=== PATIENT | male | born 2005 | race Caucasian/White ===

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

== ENCOUNTER 2023-06-09 17:03 | Emergency (ER) | payer OTHER, SELFPAY ==
--- NOTE | 2023-06-09 17:05 | ED.EAR ---
HPI - Ear Problem General Chief complaint: Ear Stated complaint: Ears Irritation Time Seen by Provider: 06/09/23 17:29 Source: patient and RN notes reviewed Mode of arrival: ambulatory Limitations: no limitations History of Present Illness HPI Narrative: 18-year-old male presents concern for left ear pain. Reports it feels swollen. Reports there irritated so he tried to clean it out himself. He denies drainage, fever, cold symptoms MD Complaint: ear pain Related Data Home Medications Medication Instructions Recorded Confirmed atomoxetine 80 mg capsule 80 mg PO DAILY 11/06/21 06/09/23 clonidine HCl 0.1 mg 0.1 mg PO DAILY 11/06/21 06/09/23 tablet,extended release,12 hr ergocalciferol (vitamin D2) 1,250 1,250 mcg PO DAILY 11/06/21 06/09/23 mcg (50,000 unit) capsule hydroxyzine pamoate 25 mg capsule 25 mg PO DAILY 11/06/21 06/09/23 ziprasidone HCl 20 mg capsule 20 mg PO DAILY 11/06/21 06/09/23 ziprasidone HCl 60 mg capsule 60 mg PO DAILY 11/06/21 06/09/23 pantoprazole 20 mg tablet,delayed 20 mg PO DAILY 06/09/23 06/09/23 release Allergies Allergy/AdvReac Type Severity Reaction Status Date / Time No Known Allergies Allergy Unknown Verified 06/09/23 17:23 Review of Systems Review of Systems: CONSTITUTIONAL: Denies malaise, chills, sweats, or fever. EYES: Denies visual changes, redness, or discharge. ENT: Denies rhinorrhea, congestion, sinus pain, and sore throat. Reports left ear pain CARDIOVASCULAR: Denies chest pain, palpitations, or edema. RESPIRATORY: Denies cough. Denies dyspnea. GASTROINTESTINAL: Denies abdominal pain, nausea, vomiting, diarrhea SKIN: Denies rash or itching. MUSCULOSKELETAL: Denies myalgia. NEUROLOGIC: Denies headache. All systems reviewed & are unremarkable except as noted in HPI and below PMFSH Comments At time of signature, agree with nursing past medical, surgical, social and family history. There is no relevant family history pertinent to the presenting complaint Exam Narrative: GENERAL: Well-appearing, well-nourished, and in no acute distress. HEAD: Normocephalic EYES: PERRLA, conjunctivae clear ENT: Nares clear. Mucous membranes moist. TM pearly obrien with dull light reflex bilaterally; left tragal tenderness with the MARISELA erythema, edema, drainage. Oropharynx not erythematous without lesions. Tonsils not enlarged and without exudate, no drooling, no hoarseness, no trismus, uvula midline. NECK: Supple. No lymphadenopathy CHEST: Clear to auscultation, breath sounds equal. No wheezing, rhonchi, rales, or stridor. No respiratory distress, speaks in full sentences. HEART: Regular rate and rhythm. No murmur heard. SKIN: Warm, dry, no rash. NEURO: Alert and oriented x3. PSYCH: Normal mood and affect Course Course Emergency Course: Patient is aware of diagnosis, understands and agrees to treatment plan. Anticipatory guidance given. Patient agrees to follow-up as directed and is aware of reasons to seek care at the emergency department. Portions of this record may have been created with voice recognition software Level of Care: Express Care Visit Vital Signs Vital signs: Reviewed. Medical Decision Making MDM Narrative Medical decision making narrative: Differential diagnosis considered: Goldstein virus, strep pharyngitis, allergic rhinitis, upper respiratory tract infection, sinusitis, rhinosinusitis, nasopharyngitis. viral pharyngitis, otitis media, otitis externa, otitis effusion, cerumen impaction, foreign body. Exam findings show no acute concerns or changes; patient is non-toxic appearing and is in no distress. Patient is appropriate for outpatient treatment and follow-up. Critical Care Time Critical Care Time Critical Care Time: No Discharge Plan Discharge Clinical Impression: Otitis externa Patient Disposition: Home, Self-Care Condition: Stable Instructions: How to Use Ear Drops (ED) Additional Instructions: 1) Please follow-up with your primar
[2023-06-09 17:13] VITALS: BP 136/80; PULSE 116; RESP 18; TEMP 36.2; O2SAT 98
== END 2023-06-09 17:40 | disposition home or self-care (01) ==
PROVIDERS: Emergency Provider Nurse Practitioner
DX: H60.92 Unspecified otitis externa, left ear (principal)
CPT/HCPCS: 99213; G0463

== ENCOUNTER 2023-08-01 12:18 | Emergency (ER) | payer OTHER, SELFPAY ==
[2023-08-01 12:33] VITALS: BP 133/75; PULSE 110; RESP 16; TEMP 36.9; O2SAT 100
--- NOTE | 2023-08-01 13:24 | ED.URI ---
HPI - URI/Sore Throat General Chief Complaint: Upper Respiratory Infection Stated Complaint: Sore Throat/Neck Pain Time Seen by Provider: 08/01/23 13:15 Source: patient Mode of arrival: ambulatory Limitations: no limitations History of Present Illness HPI Narrative: 18-year-old male presents with mom with complaint of sore throat, congestion, fatigue, stiff neck for 4 days. Afebrile. All systems reviewed and negative except as noted above. Related Data Home Medications Medication Instructions Recorded Confirmed atomoxetine 80 mg capsule 80 mg PO DAILY 11/06/21 06/09/23 clonidine HCl 0.1 mg 0.1 mg PO DAILY 11/06/21 06/09/23 tablet,extended release,12 hr ergocalciferol (vitamin D2) 1,250 1,250 mcg PO DAILY 11/06/21 06/09/23 mcg (50,000 unit) capsule hydroxyzine pamoate 25 mg capsule 25 mg PO DAILY 11/06/21 06/09/23 ziprasidone HCl 20 mg capsule 20 mg PO DAILY 11/06/21 06/09/23 ziprasidone HCl 60 mg capsule 60 mg PO DAILY 11/06/21 06/09/23 pantoprazole 20 mg tablet,delayed 20 mg PO DAILY 06/09/23 06/09/23 release Allergies Allergy/AdvReac Type Severity Reaction Status Date / Time No Known Allergies Allergy Unknown Verified 06/09/23 17:23 Review of Systems Review of Systems: CONSTITUTIONAL: Denies fever, chills, or sweats. reports fatigue. EYES: Denies visual changes, redness, or discharge. ENT: Reports rhinorrhea, congestion, sore throat. Denies otalgia. CARDIOVASCULAR: Denies chest pain, palpitations, or edema. RESPIRATORY: Denies cough or dyspnea. GASTROINTESTINAL: Denies abdominal pain, nausea, vomiting, or diarrhea. GENITOURINARY: Denies dysuria or hematuria. SKIN: Denies rash or itching. MUSCULOSKELETAL: Denies back pain, joint pain, or myalgia. NEUROLOGIC: Denies headache, numbness, or weakness. PSYCHIATRIC: Denies anxiety or depression. All other systems reviewed are negative, except as documented in HPI. PMFSH Comments At time of signature, agree with nursing past medical, surgical, social and family history. There is no relevant family history pertinent to the presenting complaint. Exam Narrative: GENERAL: This is a well-nourished, well-developed patient, in no apparent distress. HEAD: normocephalic, atraumatic. EYES: PERRL. Sclera clear/white. Vision is grossly intact. EARS: External ears normal, auditory canals clear and without drainage, TMs normal without perforation. Hearing grossly intact. NOSE: External nose normal with Are nasal drainage without redness, no rhinorrhea. THROAT: Mucous membranes moist, mild erythema with postnasal drainage NECK: Neck supple, non-tender without lymphadenopathy, masses or thyromegaly. CARDIOVASCULAR: Regular rate and rhythm without murmurs, gallops, or rubs. RESPIRATORY: Clear to auscultation. Breath sounds equal bilaterally. No wheezes, rales, or rhonchi. SKIN: warm, Dry, intact with no suspicious lesions or rash, good texture and turgor. NEURO: awake, alert, and oriented to person, place and time. There were no obvious focal neurologic abnormalities. EXTREMITIES: No joint tenderness, effusion, or edema noted. Course Course Level of Care: Express Care Visit Vital Signs Vital signs: Vital Signs Temperature 36.9 C 08/01/23 12:33 Pulse Rate 110 H 08/01/23 12:33 Respiratory Rate 16 08/01/23 12:33 Blood Pressure 133/75 08/01/23 12:33 Pulse Oximetry 100 08/01/23 12:33 Oxygen Delivery Room Air 08/01/23 12:33 Temperature 36.9 C 08/01/23 12:33 Pulse Rate 110 H 08/01/23 12:33 Respiratory Rate 16 08/01/23 12:33 Blood Pressure 133/75 08/01/23 12:33 Pulse Oximetry 100 08/01/23 12:33 Oxygen Delivery Room Air 08/01/23 12:33 reviewed MDM - URI/Sore Throat MDM Narrative Medical decision making narrative: positive COVID-19. Patient offered paxlovid but mom did not feel was necessary. Patient well-appearing. Patient is aware of diagnosis, understands and agrees to treatment plan. Anti
== END 2023-08-01 13:25 | disposition home or self-care (01) ==
PROVIDERS: Emergency Provider Nurse Practitioner Family
DX: U07.1 COVID-19 (principal)
CPT/HCPCS: 87081; 87426; 87804; 87880; 99213; C9803; G0463

== ENCOUNTER 2023-08-31 17:49 | Emergency (ER) | payer OTHER, SELFPAY ==
[2023-08-31 17:59] VITALS: BP 147/95; PULSE 118; RESP 16; TEMP 37.2; O2SAT 99
--- NOTE | 2023-08-31 18:15 | ED.URI ---
HPI - URI/Sore Throat General Chief Complaint: Upper Respiratory Infection Stated Complaint: sore throat Time Seen by Provider: 08/31/23 18:15 Source: patient Mode of arrival: ambulatory Limitations: no limitations History of Present Illness HPI Narrative: 18-year-old male presents with complaint of sore throat for 3 days. Afebrile. No other complaints today. All systems reviewed and negative except as noted above. Related Data Home Medications Medication Instructions Recorded Confirmed atomoxetine 80 mg capsule 80 mg PO DAILY 11/06/21 08/31/23 clonidine HCl 0.1 mg 0.1 mg PO DAILY 11/06/21 08/31/23 tablet,extended release,12 hr ergocalciferol (vitamin D2) 1,250 1,250 mcg PO DAILY 11/06/21 08/31/23 mcg (50,000 unit) capsule hydroxyzine pamoate 25 mg capsule 25 mg PO DAILY 11/06/21 08/31/23 ziprasidone HCl 20 mg capsule 20 mg PO DAILY 11/06/21 08/31/23 ziprasidone HCl 60 mg capsule 60 mg PO DAILY 11/06/21 08/31/23 pantoprazole 20 mg tablet,delayed 20 mg PO DAILY 06/09/23 08/31/23 release Allergies Allergy/AdvReac Type Severity Reaction Status Date / Time No Known Allergies Allergy Unknown Verified 06/09/23 17:23 Review of Systems Review of Systems: CONSTITUTIONAL: Denies fever, chills, or sweats. EYES: Denies visual changes, redness, or discharge. ENT: Denies rhinorrhea, congestion . Reports sore throat. Denies CARDIOVASCULAR: Denies chest pain, palpitations, or edema. RESPIRATORY: Denies cough or dyspnea. GASTROINTESTINAL: Denies abdominal pain, nausea, vomiting, or diarrhea. GENITOURINARY: Denies dysuria or hematuria. SKIN: Denies rash or itching. MUSCULOSKELETAL: Denies back pain, joint pain, or myalgia. NEUROLOGIC: Denies headache, numbness, or weakness. PSYCHIATRIC: Denies anxiety or depression. All other systems reviewed are negative, except as documented in HPI. PMFSH Comments At time of signature, agree with nursing past medical, surgical, social and family history. There is no relevant family history pertinent to the presenting complaint. Exam Narrative: GENERAL: This is a well-nourished, well-developed patient, in no apparent distress. HEAD: normocephalic, atraumatic. EYES: PERRL. Sclera clear/white. Vision is grossly intact. EARS: External ears normal, auditory canals clear and without drainage, TMs normal without perforation. Hearing grossly intact. NOSE: External nose normal with no obvious nasal discharge, nares without redness, no rhinorrhea. THROAT: Mucous membranes moist, posterior pharynx erythematous with swelling, tonsils 1+ bilaterally without exudates. NECK: Neck supple, non-tender without lymphadenopathy, masses or thyromegaly. CARDIOVASCULAR: Regular rate and rhythm without murmurs, gallops, or rubs. RESPIRATORY: Clear to auscultation. Breath sounds equal bilaterally. No wheezes, rales, or rhonchi. SKIN: warm, Dry, intact with no suspicious lesions or rash, good texture and turgor. NEURO: awake, alert, and oriented to person, place and time. There were no obvious focal neurologic abnormalities. EXTREMITIES: No joint tenderness, effusion, or edema noted. Course Course Level of Care: Express Care Visit Vital Signs Vital signs: Vital Signs Temperature 37.2 C 08/31/23 17:59 Pulse Rate 118 H 08/31/23 17:59 Respiratory Rate 16 08/31/23 17:59 Blood Pressure 147/95 H 08/31/23 17:59 Pulse Oximetry 99 08/31/23 17:59 Oxygen Delivery Room Air 08/31/23 17:59 Temperature 37.2 C 08/31/23 17:59 Pulse Rate 118 H 08/31/23 17:59 Respiratory Rate 16 08/31/23 17:59 Blood Pressure 147/95 H 08/31/23 17:59 Pulse Oximetry 99 08/31/23 17:59 Oxygen Delivery Room Air 08/31/23 17:59 Reviewed MDM - URI/Sore Throat MDM Narrative Medical decision making narrative: Patient is aware of diagnosis, understands and agrees to treatment plan. Anticipatory guidance given. Patient agrees to follow-up as directed and is aware of reasons to see
== END 2023-08-31 18:30 | disposition home or self-care (01) ==
PROVIDERS: Emergency Provider Nurse Practitioner Family
DX: J02.0 Streptococcal pharyngitis (principal); Z86.16 Personal history of COVID-19
CPT/HCPCS: 87880; 99213; G0463

== ENCOUNTER 2023-12-27 11:20 | Outpatient (CLI) | payer OTHER, SELFPAY ==
--- NOTE | ~2023-12-27 | XR_ITS ---
EXAMINATION: XR scoliosis survey DATE: 12/27/2023 11:55 INDICATION: Low back pain. Bilateral shoulder pain. TECHNIQUE: Anteroposterior and lateral views of the entire spine standing were obtained. COMPARISON: None. FINDINGS: Right femoral head stands 5 mm higher than the left. There are 12 pairs of ribs. There are 5 nonrib-bearing lumbar segments. There is 20 degrees dextroscoliosis scoliosis from T4 to T11 by the Jolly method. There is 11 degrees levoscoliosis from T11 to L5. IMPRESSION: 1. Right femoral head stands 5 mm higher than the left. 2. 20 degrees dextroscoliosis from T4 to T11 and 11 degrees levoscoliosis from T11 to L5. Reviewed, dictated and finalized at location E.
== END 2023-12-27 11:21 | disposition home or self-care (01) ==
LOC: ANHIMG 11:22
PROVIDERS: Visit Provider Physician Assistant
DX: M54.50 Low back pain, unspecified (principal)
CPT/HCPCS: 72082

== ENCOUNTER 2024-12-27 11:32 | Emergency (ER) | payer OTHER, SELFPAY ==
[2024-12-27 11:43] VITALS: BP 104/65; PULSE 111; RESP 16; TEMP 36.7; O2SAT 96
[2024-12-27 12:08] LABS: EDSTREPNEGPOS1 Negative (Negative)
--- NOTE | 2024-12-27 12:36 | ED_ITS ---
HPI - URI/Sore Throat General Chief Complaint: Upper Respiratory Infection Stated Complaint: Sore Throat Time Seen by Provider: 12/27/24 11:35 Source: patient Mode of arrival: ambulatory Limitations: no limitations History of Present Illness HPI Narrative: Patient is a 19-year-old male who presents with 1 week of intermittent sore throat, body aches, congestion and postnasal drip. Denies any cough, fever, chills, nausea, vomiting, diarrhea. Has been taking Zyrtec intermittently. Related Data Home Medications Medication Instructions Recorded Confirmed Last Taken Type atomoxetine 80 mg capsule 80 mg PO DAILY 11/06/21 08/31/23 Unknown History clonidine HCl 0.1 mg 0.1 mg PO DAILY 11/06/21 08/31/23 Unknown History tablet,extended release,12 hr ergocalciferol (vitamin D2) 1,250 1,250 mcg PO DAILY 11/06/21 08/31/23 Unknown History mcg (50,000 unit) capsule hydroxyzine pamoate 25 mg capsule 25 mg PO DAILY 11/06/21 08/31/23 Unknown History ziprasidone HCl 20 mg capsule 20 mg PO DAILY 11/06/21 08/31/23 Unknown History ziprasidone HCl 60 mg capsule 60 mg PO DAILY 11/06/21 08/31/23 Unknown History pantoprazole 20 mg tablet,delayed 20 mg PO DAILY 06/09/23 08/31/23 Unknown History release Allergies Allergy/AdvReac Type Severity Reaction Status Date / Time No Known Allergies Allergy Unknown Verified 12/27/24 11:42 Review of Systems Review of Systems: All systems reviewed & are unremarkable except as noted in HPI and below Constitutional: Constitutional: Denies chills, Denies fatigue, Denies fever(s), Denies headache(s), Denies malaise and Denies weakness Eyes: Eyes: Denies blurry vision, Denies itchy eyes and Denies loss of vision ENT: Denies otalgia, Denies headache(s), Reports nasal congestion, Denies sinus pain and Reports sore throat Cardiovascular: Cardiovascular: Denies chest pain, Denies irregular heart rhythm and Denies dyspnea Respiratory: Respiratory: Denies cough and Denies dyspnea Gastrointestinal: Gastrointestinal: Denies abdominal pain, Denies diarrhea, Denies nausea and Denies vomiting Musculoskeletal: Musculoskeletal: Denies back pain, Reports myalgias and Denies arthralgias Integumentary/Breasts: Skin/Breast: Denies pruritus and Denies rash Neurologic: Denies headache(s), Denies loss of vision and Denies weakness Psychiatric: Psychiatric: Reports no additional psychiatric complaints Endocrine: Endocrine: Denies fatigue Allergic/Immunologic: Allergic/Immunologic: Denies itchy eyes PMFSH Comments At time of signature, agree with nursing past medical, surgical, social and family history. There is no relevant family history pertinent to the presenting complaint. Exam Const: General: cooperative, healthy appearing, comfortable, no acute distress and well nourished Nutritional Appearance: well nourished Orientation/consciousness: patient oriented x3 Limitations: no limitations HENMT: Head: normal to inspection, normocephalic and atraumatic Ears: hearing grossly normal bilaterally, external ears normal, TM's normal bilaterally, EAC's normal and no periauricular adenopathy Face/Nose/Sinus: Normal external nose present, Abnormal mucous membranes and turbinates present erythematous bilateral and diffuse, normal facial exam, sinuses nontender and face symmetric Face and sinus: normal facial exam, sinuses nontender and face symmetric Mouth: Yes Normal oral and palatal mucosa present, Yes lip normal, Yes tongue normal, Yes Normal salivary glands and ducts present, Yes oropharynx normal and Yes moist mucous membranes Teeth and gingiva: dentition normal Throat: posterior oropharynx normal, tonsils normal, uvula midline and postnasal drainage Eyes: General: appearance normal, both eyes and all related structures Al ignment and Position: alignment normal and position normal Periorbital: periorbital findings normal Eyelids: eyelids normal Pupils: Equal, round and reactive pupils present Neck: Neck: normal visual inspection, full ROM, no lymphadenopathy and supple Chest: Chest palpation & inspection: normal inspection of the chest and normal palpation of entire chest wall Resp: Effort & Inspection: normal respiratory effort and able to speak in complete sentences Auscultation: clear to auscultation bilaterally, no crackles, no rales, no rhonchi and no wheezes Cardio: Rate: regular rate Rhythm: regular rhythm Heart sounds: S1 normal heart sound present and S2 normal heart sound present GI: Inspection: normal to inspection Skin: General skin exam: normal color and no rashes or lesions noted Neuro: General: patient oriented x3 and moves all extremities Cranial nerves: Yes Equal, round and reactive pupils present Speech: normal speech Gait exam (Neuro): Normal gait present Extrem: General: normal to inspection, full ROM and no edema Psych: Appearance: grossly normal and well kempt Mental Status: mental status grossly normal Speech and movement: Normal speech and movement present Affect: normal affect Attitude: cooperative Thought process: Normal thought process present Course Course Emergency Course: Discharge instructions reviewed with patient, as well as provided in writing per nursing staff. The instructions also include specific and strict return/GO TO THE ER as well as f/u information. All questions have been answered, and the patient deny any further questions with discharge and discharge plan. Portions of this record may have been created with voice recognition software Level of Care: Express Care Visit Vital Signs Vital signs: Vital Signs Temperature 36.7 C 12/27/24 11:43 Pulse Rate 111 H 12/27/24 11:43 Respiratory Rate 16 12/27/24 11:43 Blood Pressure 104/65 12/27/24 11:43 Pulse Oximetry 96 12/27/24 11:43 Oxygen Delivery Room Air 12/27/24 11:43 Temperature 36.7 C 12/27/24 11:43 Pulse Rate 111 H 12/27/24 11:43 Respiratory Rate 16 12/27/24 11:43 Blood Pressure 104/65 12/27/24 11:43 Pulse Oximetry 96 12/27/24 11:43 Oxygen Delivery Room Air 12/27/24 11:43 Reviewed MDM - URI/Sore Throat MDM Narrative Medical decision making narrative: Pt well hydrated appearing, in no respiratory distress, hemodynamically stable. Recommend supportive care. The patient is stable at time of discharge the clinical impression was discussed and the patient was given the opportunity to ask questions, which were addressed as completely as possible given the information available at present. Anticipatory guidance and return to care precautions were discussed and the importance of primary care follow-up was stressed and encouraged. The patient voiced understanding of the plan, indications to return, and the need for follow-up. Exam findings show no acute concerns or changes Patient is appropriate for outpatient treatment and follow-up. Differential diagnosis considered: Goldstein virus, strep pharyngitis, allergic rhinitis, upper respiratory tract infection, sinusitis, rhinosinusitis, nasopharyngitis. viral pharyngitis, otitis media, otitis externa, otitis effusion, foreign body, cerumen impaction, viral syndrome, and influenza. Medical Records Attestation: I reviewed the patient's medical records. Lab Data Attestation: I reviewed the patient's lab results. Labs: Lab Results 12/27/24 Range/Units 12:03 POC Grp A Strep Screen Negative (Negative) Discharge Plan Discharge Clinical Impression: Upper respiratory infection Qualifiers: URI type: acute nasopharyngitis (common cold) Qualified Code(s): J00 - Acute nasopharyngitis [common cold] Patient Disposition: Home Condition: Stable Instructions: Upper Respiratory Infection (ED) Additional Instructions: Your rapid strep swab was negative today at [facility]. A throat culture will be sent to the laboratory for further testing. If the test is positive, you will receive a phone call within 48 hours and an appropriate antibiotic will be initiated at that time. Your symptoms are likely due to a viral illness, which is not treated with antibiotics. Viral symptoms can be present for up to a few weeks. -For pain/fever, you may take: Tylenol 650-1000mg by mouth every 4-6 hours. Do not exceed 4000mg in 24 hours. Advil (Ibuprofen) 600 mg by mouth every 6 hours. Do not exceed 2400mg in 24 hours. 8 AM: Tylenol 11 AM: Ibuprofen 2 PM: Tylenol 5 PM: Ibuprofen 8 PM: Tylenol 11 PM: Ibuprofen 2 AM: Tylenol 5 AM: Ibuprofen -Antihistamine medication such as Benadryl/Zyrtec at night and Claritin/Natacha during the day can help improve symptoms. -Use Flonase twice a day for 5 days then daily to help reduce the inflammation and dry up your sinuses. -You can also use Sudafed behind the pharmacy counter(12 or 24 hour). Be sure to drink plenty of water with these medications at least 8 ounces with every dose and it is important to drink 8 to 10 glasses of water per day. Water is a natural decongestant -Eat and drink things that are easy to swallow, like tea or soup, or popsicles. -Oral rinses such as: Salt water gargles and/or may use topical anesthetic (eg. Chloraseptic spray) or lozenges to relieve dryness or throat pain). -Frequent hand washing or hand photographers' model is one of the best ways to prevent spread of infection. -Using a vaporizer or humidifier at night will also help thin secretions and help with coughing up phlegm. Call your Primary Care Doctor and make a follow-up appointment in 3 days. If your cough worsens, you develop a fever greater than 103, you develop shaking chills, a fast heartbeat, trouble breathing and/or feel you are are breathing much faster than usual, call your Primary Care Doctor or go to the ER. Patient Language: Maltese Prescriptions: New fluticasone propionate [Flonase Allergy Relief] 50 mcg/actuation spray,suspension 1 spray intranasal DAILY Qty: 16 0RF Rx Instructions: administer into each nostril No Action ziprasidone HCl 20 mg capsule 20 mg PO DAILY ergocalciferol (vitamin D2) 1,250 mcg (50,000 unit) capsule 1,250 mcg PO DAILY ziprasidone HCl 60 mg capsule 60 mg PO DAILY hydroxyzine pamoate 25 mg capsule 25 mg PO DAILY atomoxetine 80 mg capsule 80 mg PO DAILY clonidine HCl 0.1 mg tablet extended release 12 hr 0.1 mg PO DAILY pantoprazole 20 mg tablet,delayed release (DR/EC) 20 mg PO DAILY Follow-up/Referrals: Paolo Bowers MD [Physician] - 3 Days (Establish care) Stand Alone Forms: Work/School Release IP Time of Disposition: 12:57
== END 2024-12-27 13:00 | disposition home or self-care (01) ==
PROVIDERS: Emergency Provider Nurse Practitioner Family
DX: J00 Acute nasopharyngitis [common cold] (principal)
CPT/HCPCS: 87081; 87880; 99213; G0463